=== PATIENT | male | born 1995 | race Hispanic/Latino ===

== ENCOUNTER 2023-03-20 11:35 | Emergency (ER) | payer OTHER, SELFPAY ==
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
[2023-03-20 11:38] VITALS: BP 152/81; PULSE 70; RESP 18; TEMP 36.6; O2SAT 100
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
[2023-03-20] MEDS: IBUPROFEN 400 MG TABLET 800 MG PO (16:19)
[2023-03-20] MEDS: ACETAMINOPHEN 500 MG TABLET 1000 MG PO (16:19)
[2023-03-20 18:03] VITALS: BP 120/89; PULSE 60; RESP 18; O2SAT 100
== END 2023-03-20 18:05 | disposition home or self-care (01) ==
PROVIDERS: Emergency Provider Emergency Medicine
DX: M25.511 Pain in right shoulder (principal); M25.571 Pain in right ankle and joints of right foot; V89.2XXA Person injured in unspecified motor-vehicle accident, traffic, initial encounter
CPT/HCPCS: 73030; 73610; 99284; A9270